=== PATIENT | female | born 1995 | race Caucasian/White ===

== ENCOUNTER 2018-04-18 11:18 | Inpatient (IN) | payer BC, MEDICAID ==
[~2018-04-18] VITALS: Ht 163.1 cm; Wt 92.1 kg
[~2018-04-18 11:18] MED LIST: CEPH500C24 PO; HYDR-4309 PO; PROM-110 PO
[2018-04-18 11:36] VITALS: BP 136/72; Ht 163.1 cm; Wt 92.1 kg
[2018-04-18] MEDS ORDERED: FAMOTIDINE(*) 20MG/50ML PREMIX 50 ML IVPB PRN (12:09)
[2018-04-18] MEDS ORDERED: OXYTOCIN 30 UNIT/D5LR 500 ML 500 ML IV PRN (12:09)
[2018-04-18] MEDS ORDERED: fentaNYL CITR 100 MCG/2 ML AMP IVP PRN (12:10)
[2018-04-18] MEDS ORDERED: LIDOCAINE 1% LOCAL 300 MG/30ML INJ PRN (12:10)
[2018-04-18] MEDS ORDERED: FLUSH 10 ML SYR IVP PRN (12:10)
[2018-04-18] MEDS ORDERED: METOCLOPRAMIDE 10 MG/2 ML SDV IVP PRN (12:10)
[2018-04-18] MEDS ORDERED: LIDOCAINE/SOD BICARB 8.4% SYR SC PRN (12:10)
[2018-04-18] MEDS ORDERED: ONDANSETRON 4 MG/2 ML VIAL IVP PRN (12:15)
[2018-04-18 12:32] LABS: PLATELET COUNT, AUTOMATED 246 K/uL (150-450)
[2018-04-18] MEDS: LR(*) 1000 ML BAG 1,000 ML IV SCH ×2 (12:33→14:00)
--- NOTE | 2018-04-18 12:34 | History & Physical ---
History of Present Illness EDC per LMP: May 01, 2018 Estimated Gestational Age: 38.1 Chief Complaint Loss of fluid and contractions History of Present Illness 22-year-old at 38w1d presents with uterine contractions starting at 10:15 AM. She also reports loss of fluid for the past 3 days. This discharge appears to be clear. She denies any vaginal bleeding or preeclampsia symptoms. She reports good movement. care by [facility]. Her is complicated by a history of SVT with 2 cardiac ablations. History Patient's Blood Type: A Positive Rubella Status: Immune Group B Strep Screen: Negative Obstetrical History: G1: 6wk 2016 G2: Current Past Medical History: Hx SVT with 2 cardiac ablations at 15yo Allergies: Coded Allergies: No Known Drug Allergies (Unverified , 11/24/16) Social History: No T/E/D. Med Rec Home Meds Active Scripts Cephalexin Monohydrate (CEPHALEXIN) 500 Mg Cap, 500 MG PO Q6H, #20 CAP 0 Refills Prov:DEN INGRAM MD 11/24/16 Hydrocodone Bit/Acetaminophen (NORCO 5-325 TABLET) 1 Each Tablet, 1 EACH PO Q4H Y for PAIN, #12 TAB Prov:JOSE HARRELL DO 06/05/16 Review of Systems Constitutional: No Fever Neurological: No Syncope Eyes: No Vision Change Cardiovascular: No Chest Pain Respiratory: No Shortness of Breath Gastrointestinal: No Nausea, No Vomiting, No Diarrhea Genitourinary: No Dysuria Psychiatric: No Depression, No Anxiety Exam General Exam Vital Signs Vital Signs Date Time Temp Pulse Resp B/P (MAP) Pulse Ox O2 Delivery O2 Flow Rate FiO2 04/18/18 11:36 99.1 82 17 136/72 (93) 94 Room Air General Apperance: Alert/Awake/No Acute Distress Neuro: No Gross deficits Eyes: Normal Extraocular Movement & Vison Cardiovascular: Regular Rate and Rhythm Respiratory: No Respiratory Distress, Clear to Auscultation Abdomen: Gravid - Non-Tender : Normal Musculoskeletal: No Weakness/Pain Extremities: No Cyanosis,Clubbing or Edema Integumentary: Skin Intact without Lesions or Rash Psychological: Alert & Oriented X3, Appropriate Mood & Affect Cervical Dialation: 4 (per RN) Cervical Effacement (%): 100 Cervical Consistency: Soft Cervical Position: Mid Station: -1 Presentation: Vertex Uterine Contractions(Q min): 3 Uterine Contraction Strength: Mild, Strong UC Resting Tone: Soft Fetus Feeling Movement?: Yes FHT Category: I Medical Decision Making Pre-Admit Course Medical Record Review: Yes VTE Prophylasis: Adult Deep Vein Thrombosis/Pulmonary: No Pharmacological Contraindicati: Pt at Low Risk for VTE Mechanical Contraindications: Pt at Low Risk for VTE Assessment and Plan Problems: (1) 38 weeks gestation of Assessment & Plan: 22yo at 38w4d presents with UCx. She appears to be in labor. Amnisure negative. Monitor for cervical change. Epidural for pain control. (2) History of PSVT (paroxysmal supraventricular tachycardia) PRESTON SAVAGE MD April 18, 2018 11:50
[2018-04-18] MEDS ORDERED: BUPIVACAINE 0.5% INJ 30ML VIAL EPI PRN (12:55)
[2018-04-18] MEDS ORDERED: FENTANYL/ROPIVACAINE 100 ML BAG EPI PRN (12:55)
[2018-04-18] MEDS ORDERED: fentaNYL CITR 100 MCG/2 ML AMP IT PRN (12:55)
[2018-04-18] MEDS ORDERED: LIDO/EPI 2% MPF 1:200,000 20ML EPI PRN (12:55)
[2018-04-18] MEDS ORDERED: ePHEDrine 25 MG/5 ML DISP.SYR IVP PRN (12:55)
[2018-04-18] MEDS ORDERED: LIDOCAINE/PF 2% 200MG/10ML AMP 200 MG/10 ML AMPUL EPI PRN (12:55)
[2018-04-18] MEDS ORDERED: BUPIVACAINE 0.25% MPF INJ EPI PRN (12:55)
[2018-04-18] MEDS ORDERED: EPIDURAL KEYS XX PRN (12:55)
--- NOTE | 2018-04-18 13:05 | Anesthesia OB Pre-Anes Eval ---
History of Present Illness EDC: May 01, 2018 : 1 Para: 0 Vital Signs: Result Diagram: 04/18/18 1223 Height (Inches): 64.20 Weight (Pounds): 203 BMI Calculated: 34.62 Past Medical History Home Meds Active Scripts Cephalexin Monohydrate (CEPHALEXIN) 500 Mg Cap, 500 MG PO Q6H, #20 CAP 0 Refills Prov:DEN INGRAM MD 11/24/16 Hydrocodone Bit/Acetaminophen (NORCO 5-325 TABLET) 1 Each Tablet, 1 EACH PO Q4H Y for PAIN, #12 TAB Prov:JOSE HARRELL DO 06/05/16 Allergies: Coded Allergies: No Known Drug Allergies (Unverified , 11/24/16) LILIBETH JURADO CRNA April 18, 2018 13:04
[2018-04-18] MEDS ORDERED: BUPIV IT ONE (14:30)
[2018-04-18] MEDS ORDERED: DEXTR IT ONE (14:30)
--- NOTE | 2018-04-18 16:02 | Anesthesia OB Pre-Anes Eval ---
History of Present Illness Anesthesia Start Date: April 18, 2018 Anesthesia Start Time: 13:05 OB Anesthesia Diagnosis: spontaneous labor Complications: None known EDC: May 01, 2018 : 1 Para: 0 Vital Signs: Vital Signs Date Time Temp Pulse Resp B/P (MAP) Pulse Ox O2 Delivery O2 Flow Rate FiO2 04/18/18 11:36 99.1 82 17 136/72 (93) 94 Room Air Pain Ratin Heart Tones: WNL Result Diagram: 04/18/18 1223 Height (Inches): 64.20 Weight (Pounds): 203 BMI Calculated: 34.62 Past Medical History Medical History: other (HS of SVT) Surgical History: other (ablation of heart) Previous Anesthesia: other Attended Childbirth Classes?: No Hx Anesthesia Reactions: No Hx Family Anesthesia Reaction: No Current Medications: pain medication (Fentenyl IV) Home Meds Active Scripts Cephalexin Monohydrate (CEPHALEXIN) 500 Mg Cap, 500 MG PO Q6H, #20 CAP 0 Refills Prov:DEN INGRAM MD 11/24/16 Hydrocodone Bit/Acetaminophen (NORCO 5-325 TABLET) 1 Each Tablet, 1 EACH PO Q4H Y for PAIN, #12 TAB Prov:JOSE HARRELL DO 06/05/16 Allergies: Coded Allergies: No Known Drug Allergies (Unverified , 11/24/16) Anesthesia OB ROS Neurological: No migraines/headaches, No seizures, No neuropathy ENT: Denies Tooth caps, Denies Loose teeth, Denies Chipped teeth, Denies Dentures, Denies Bridges, Denies Retainers, Denies Veneers, Denies Implants, Denies Tongue ring Pulmonary: No asthma, No smoker (pks/day/yrs), other Airway Class: ll Cardiovascular ROS: No edema, No arrhythmia GI ROS: clear liquids Last Solids Date: April 18, 2018 Last Solids Time: 10:00 ROS: No Herpes, No STD(s), No Liver Disease, No Renal Disease Endocrine ROS: No diabetes, No gestational diabetes, No thyroid disorder Musculoskeletal ROS: No low back pain, No low back injury, No scoliosis ASA Classification: 2 Assessment and Plan Anesthesia Plan: CSE Assessment Past Medical, Surgical, Family and Obstetric Histories reviewed. Please see ACOG chart. Epidural anesthesia risks, complications and benefits explained to patient's satisfaction for labor and vaginal delivery and/or section. General anesthesia risks and benefits explained to patient's satisfaction. Questions invited, none asked. LILIBETH JURADO CRNA April 18, 2018 16:02
--- NOTE | 2018-04-18 16:31 | Procedure Note ---
Anesthetic Placement Note Anesthesia Plan: CSE Permit for Anesthesia Signed: Yes Anesthesia Technique: Patient Sitting Anesthesia Prep: Chlorhexidine Interspace: L 3-4 Local Anesthetic: 1% Lidocaine, 25 Gauge Needle Anesthesia Needle: 17g Danita/Daraff Anesthesia Attempts: 1 Loss of Resistance: Air Depth of JOSE (cm): 6 Epidural Needle Placement: CSF, Blood, Parasthesia Intrathecal Needle: 27 Gauge Pencan Cerebral Spinal Fluid: Yes, Clear Catheter Insertion (cm): 8 Catheter Type: Bright - Spring Wound Epidural Dressing: Tegaderm, Tape, Adhesive [place] Anesthesia Tray: Lot Number ([id number]), Expiration Date (2018-08 & 2019-06-26), Reference Number ([id number]) Comment: Pt. states her pain score is "8" after IV Fentenyl. Anesthesia Medications: Intrathecal Dose: mcg Fentanyl (15), mg Marcaine MPF (1.75), Time (1325) Complications: Comment: Small amount of blood noted in epidural needle after repositioning to obtain epidural space. Good JOSE noted. Slow return of CSF noted after intrathecal needle removed and threading catheter. Epidural needle removed after threading epidural catheter. Observed CSF for 10-15 sec., then removed catheter. Pt. changed to left lateral and allowed to rest. After 15 minutes, pt. now comfortable and not noticing contractions at all. Slowly assisted to return to supine position. BP stable and FHT remain good. 2nd attempt made to place epidural catheter. Sterile technique followed. Good JOSE noted, no CSF from epidural needle, but again clear CSF with threading catheter. Epidural catheter left in place and slowly dosed as intrathecal catheter. Able to aspirate clear fluid after catheter has been closed for 10 minutes. 1415: dosed with 0.3ml of spinal Marcaine with Fentenyl 25 mcgs. 1445: dosed with another 0.6 of spinal Marcaine with Fentenyl 50 mcgs. Pt. not showing any indication of spinal effects, able to move both legs very well. 1505: dosed with 5 ml of 0.25% Marcaine pl. 1515: redosed with another [address] and now showing improvement in comfort. LILIBETH JURADO CRNA April 18, 2018 16:31
--- NOTE | 2018-04-18 16:51 | Labor Progress Note ---
Labor Subjective Progress Notes Subjective Doing well. Comfortable with epidural. Labor Objective Vital Signs Vital Signs Date Time Temp Pulse Resp B/P (MAP) Pulse Ox O2 Delivery O2 Flow Rate FiO2 04/18/18 11:36 99.1 82 17 136/72 (93) 94 Room Air Cervical Dialation: 9 Cervical Effacement (%): 100 Cervical Consistency: Soft Cervical Position: Mid Station: +2 Uterine Contractions(Q min): 3 Uterine Contraction Strength: Strong Fetus FHT Category: I General Exam General Appearance: Alert/Awake/No Acute Distress Abdomen: Gravid - Non-Tender : Normal Musculoskeletal: No Weakness/Pain Extremities: No Cyanosis,Clubbing or Edema Integumentary: Skin Intact without Lesions or Rash Psychological: Alert & Oriented X3, Appropriate Mood & Affect Other Result Diagram: 04/18/18 1223 Assessment and Plan Problems: (1) 38 weeks gestation of Assessment & Plan: Pt now anterior lip. Will labor down for another 45 minutes and then push unless indicated before. Anticipate . (2) History of PSVT (paroxysmal supraventricular tachycardia) PRESTON SAVAGE MD April 18, 2018 16:51
--- NOTE | 2018-04-18 16:53 | Anesthesia Progress Note ---
Progress/Maintenance Anesthesia Note Date: April 18, 2018 Anesthesia Note Time: 16:30 Pain Intensity: 0 Motor Level: Bending Knees-Bilateral Dilatation: 6 Position: Right, Tilt Assessment and Plan Assessment Pt. remains very comfortable. No further medications given per epidural. LILIBETH JURADO CRNA April 18, 2018 16:53
--- NOTE | 2018-04-18 18:08 | Anesthesia Progress Note ---
Progress/Maintenance Anesthesia Note Date: April 18, 2018 Anesthesia Note Time: 16:55 Pain Intensity: 1 Sensory Level: T-12 Motor Level: Bending Knees-Bilateral Dilatation: 10 Position: Semi-Fowlers Drug Bolus: 0.25% Marcaine (4 ml) Assessment and Plan Assessment Bolus of Marcaine 0.25% plain given. Pt. pushing well. LILIBETH JURADO CRNA April 18, 2018 18:07
[2018-04-18] MEDS ORDERED: BENZOCAINE 20% 60 ML BTL TP PRN (18:30)
[2018-04-18] MEDS ORDERED: INFLUENZA VIRUS VAC 0.5 ML SYR IM ONLY ONE (18:30)
[2018-04-18] MEDS ORDERED: HYDROCORTISONE 2.5% CR 30GM TB PR PRN (18:30)
[2018-04-18] MEDS ORDERED: MAGNESIUM HYDROXIDE* 30ML UDCP PO PRN (18:30)
[2018-04-18] MEDS ORDERED: GLYCERIN/WITCH HAZEL LEAF 1 PK TOP PRN (18:30)
[2018-04-18] MEDS ORDERED: LANOLIN OINT 7 GM TUBE TP PRN (18:30)
[2018-04-18] MEDS ORDERED: ACETAMINOPHEN 325 MG TAB PO PRN (18:30)
--- NOTE | 2018-04-18 18:30 | OB Delivery Note ---
Delivery Note Vaginal Delivery Type: Spont. Vaginal Delivery Delivery Date: April 18, 2018 Delivery Time: 18:18 Estimated Gestational Age(wks): 38.4 Length of Labor Stage I (hrs): 7 Length of Labor Stage II (hrs): 1 Labor Stage III (minutes): 3 Delivery Anesthesia: Epidural Infant Sex: Male Quincy Apgars: 1 Minute (8), 5 Minute (9) Repair Needed: 2nd Degree Estimated Blood Loss: 200 Delivery Complications: Nuchal Cord PRESTON SAVAGE MD April 18, 2018 18:30
--- NOTE | 2018-04-18 18:35 | Anesthesia Progress Note ---
Progress/Maintenance Anesthesia Note Date: April 18, 2018 Anesthesia Note Time: 18:30 Pain Intensity: 0 Motor Level: Bending Knees-Bilateral Position: Semi-Fowlers Assessment and Plan Assessment No further medication given. Empty sterile syringe (1ml) attached to epidural catheter and will keep it in place til 04/19/18. Patient instructed the first ambulation is to be with help of nursing staff. Instructed to preform deep knee bends at bedside before walking. RN instructed to not remove epidural catheter. Anesthesia Stop Day: April 18, 2018 Anesthesia Stop Time: 18:30 LILIBETH JURADO CRNA April 18, 2018 18:35
[2018-04-18] MEDS: IBUPROFEN 800 MG TAB PO SCH (19:45)
--- NOTE | 2018-04-18 20:03 | DELIVERY NOTE ---
DELIVERY DATE: April 18, 2018 SURGEON: Rowena Boss MD ANESTHESIA: Epidural. DIRECTOR OF ENTERPRISE STRATEGY: Brooke Arzate CRNA PREOPERATIVE DIAGNOSIS Intrauterine at 38 weeks one day, presenting in spontaneous active labor. POSTOPERATIVE DIAGNOSES 1. Intrauterine at 38 weeks one day, presenting in spontaneous active labor. 2. Delivery of a viable male at 1818 hours weighing 3178g with Apgars of 8 at one minute and 9 at five minutes. PROCEDURES PERFORMED 1. Spontaneous vaginal delivery. 2. Repair of second-degree midline laceration. INDICATIONS FOR PROCEDURE This patient is a 22-year-old 2, para zero, who presents at 38 weeks one day with spontaneous active labor. At the time of presentation, she was 3, 100, and -2. She was able to progress on her own and received an epidural for anesthesia. She was noted to be complete at 1714 hours after experiencing spontaneous rupture of membranes at 1639 hours. She was then allowed to labor down and then prepared for pushing. DESCRIPTION OF PROCEDURE The patient was noted to be complete and placed in the dorsal lithotomy position and prepped and draped in the usual fashion for a vaginal procedure. She was able to bring the infant's vertex to the perineum with spontaneous pushing. The 's vertex delivered spontaneously in the BECKI positive over an intact perineum. Initially, there was a bit of a turtle sign, and it appeared that there may be a dystocia. However, with a small amount of manipulation of the patient's position into Liana position, the posterior shoulder was able to be delivered easily, followed by the anterior shoulder. A nuchal cord was noted and delivered through. The remainder of the was easily delivered. The infant had spontaneous cry and spontaneous movement of all four extremities. The oropharynx and nasopharynx were bulb suctioned. The was then passed to the mother's abdomen where nursing personnel was in attendance. After 90 seconds, the cord was clamped times two and cut by the father of the baby. Cord blood was then obtained and passed off the table. The placenta subsequently delivered spontaneously intact at 1821 hours and was passed off the table. Examination of the cervix, vaginal wall, and perineum revealed a second-degree midline laceration which was repaired using a 3-0 Vicryl in a running, nonlocking fashion. Once hemostasis was assured, the patient tolerated the procedure well and recovered in Labor and Delivery with her infant. All sponge and needle counts were correct at the end of this procedure. SUSHIL
[2018-04-18 21:06] VITALS: BP 115/66
[2018-04-18] MEDS: DOCUSATE CALCIUM 240 MG CAP PO SCH (21:36)
[2018-04-18 22:24] VITALS: BP 115/57
[2018-04-19 00:12] VITALS: BP 110/54
[2018-04-19] MEDS: IBUPROFEN 800 MG TAB PO SCH ×3 (02:55→19:02)
[2018-04-19 03:13] VITALS: BP 123/70
[2018-04-19] MEDS: APAP/HYDROCODONE 325/5 TAB PO PRN (05:26)
[2018-04-19 08:00] VITALS: BP 115/58
--- NOTE | 2018-04-19 08:05 | OB/GYN Progress Note ---
OB Subjective Progress Notes Subjective Doing well. Pain controlled with oral medications. Tolerating regular diet. Ambulating. Voiding. Normal lochia. No preeclampsia symptoms. Working through issues. OB Objective Physical Exam Vital Signs Date Time Temp Pulse Resp B/P (MAP) Pulse Ox O2 Delivery O2 Flow Rate FiO2 04/19/18 03:13 98.5 71 18 123/70 (87) 04/18/18 22:24 95 Room Air General Appearance: Alert/Awake/No Acute Distress Neurological: No Gross deficits Eyes: Normal Extraocular Movement & Vison Cardiovascular: Normal Rhythm & Peripheral Pulses, Regular Rate and Rhythm Respiratory: No Respiratory Distress, Clear to Auscultation Abdomen: Soft, Non-Tender, Non-Distended, Fundus Firm Musculoskeletal: No Weakness/Pain Extremities: No Cyanosis,Clubbing or Edema Integumentary: Skin Intact without Lesions or Rash Psychological: Alert & Oriented X3, Appropriate Mood & Affect Result Diagram: 04/18/18 1223 Assessment and Plan Problems: (1) care and examination immediately after delivery Assessment & Plan: PPD#1 s/p . Doing well. Work on today. Home tomorrow. (2) History of PSVT (paroxysmal supraventricular tachycardia) PRESTON SAVAGE MD April 19, 2018 08:05
[2018-04-19] MEDS ORDERED: HYDR2TAB4 PO (08:50)
[2018-04-19] MEDS ORDERED: IBUP800T37 PO (08:50)
--- NOTE | 2018-04-19 08:52 | OB/GYN Discharge Summary ---
Discharge Summary Reason for Hosp/Final Diag: (1) care and examination immediately after delivery Hospital Course & Plan: vaginal delivery on PPD#2 . Pain controlled, Tolerating diet and activity. Baby . Normal lochia. Evaluated for spinal headache on day 2 Lates Vital Signs Vital Signs Date Time Temp Pulse Resp B/P (MAP) Pulse Ox O2 Delivery O2 Flow Rate FiO2 04/19/18 03:13 98.5 71 18 123/70 (87) 04/18/18 22:24 95 Room Air Weight (Pounds): 203 Result Diagram: 04/18/18 1223 Condition: Improved Discharge: Home, Self Alf Meds Active Scripts Ibuprofen (IBUPROFEN) 800 Mg Tablet, 1 TAB PO Q8H, #30 TAB 0 Refills Take with food every 8 hours. Prov:RAMILA HERNANDEZ MD 04/19/18 Hydromorphone Hcl (HYDROMORPHONE HCL) 2 Mg Tablet, 2-4 MG PO Q4H for PAIN, #20 TAB 0 Refills Prov:RAMILA HERNANDEZ MD 04/19/18 Cephalexin Monohydrate (CEPHALEXIN) 500 Mg Cap, 500 MG PO Q6H, #20 CAP 0 Refills Prov:DEN INGRAM MD 11/24/16 Hydrocodone Bit/Acetaminophen (NORCO 5-325 TABLET) 1 Each Tablet, 1 EACH PO Q4H Y for PAIN, #12 TAB Prov:JOSE HARRELL DO 06/05/16 [phone] Follow up in: 6 wks PP or PO Discharge Diet: As Tolerates Discharge Activity: Pelvic Rest Copies to: RAMILA HERNANDEZ MD, JOHN MD April 19, 2018 08:51
[2018-04-19] MEDS: DOCUSATE CALCIUM 240 MG CAP PO SCH ×2 (09:57→21:35)
--- NOTE | 2018-04-19 12:06 | Anesthesia Post Eval Note ---
Anesthesia Post Eval Note Vital Signs Date Time Temp Pulse Resp B/P (MAP) Pulse Ox O2 Delivery O2 Flow Rate FiO2 04/19/18 08:00 98.8 78 18 115/58 (77) 04/18/18 22:24 95 Room Air Pt able to participate in Eval: Yes Cardiovascular Status: Satisfactory Respiratory Status: Satisfactory Pain Managment: Satisfactory PO Nausea/Vomiting: Satisfactory Temperature Management: Satisfactory Mental Status: Satisfactory, Alert, Oriented X3 Post-Op Hydration Status: Satisfactory, Tolerating PO Well, Voiding w/o Difficulty Anesthesia Type: CSE Anesthesia Tolerance: Tolerated procedure well without apparent anesthetic complications. LP site clear, no redness or edema. States she has a "slight headache". Denies any residual paresthesia. Vital Signs Stable, Patient comfortable and condition stable. Instructed pt. to avoid any straining or heaving lifting for 7-10 days and to notify her physician if she has a headache with ambulation, relieved with rest. Description of PDPHA described to pt. LILIBETH JURADO CRNA April 19, 2018 12:06
[2018-04-19 13:15] VITALS: BP 119/59
[2018-04-19 20:30] VITALS: BP 109/60
[2018-04-20] MEDS: APAP/HYDROCODONE 325/5 TAB PO PRN ×3 (01:45→16:44)
[2018-04-20] MEDS: IBUPROFEN 800 MG TAB PO SCH (03:35)
[2018-04-20 04:00] VITALS: BP 105/57
[2018-04-20] MEDS ORDERED: MEASLES,MUMP,RUBELLA VAC 0.5ML SUBQ ONE (09:00)
[2018-04-20] MEDS ORDERED: DIPHTH/TETANUS/ACEL. PERTUSSIS IM ONLY ONE (09:00)
--- NOTE | 2018-04-20 09:24 | OB/GYN Progress Note ---
OB Subjective Progress Notes Subjective Pain controlled, Tolerating diet and activity. Baby . Normal lochia. GI: NEG Nausea, NEG Vomiting Pain: Mild Neurological: Headache OB Objective Physical Exam Vital Signs Date Time Temp Pulse Resp B/P (MAP) Pulse Ox O2 Delivery O2 Flow Rate FiO2 04/20/18 04:00 98.0 63 18 105/57 (73) Room Air 04/19/18 20:30 93 General Appearance: Alert/Awake/No Acute Distress Neurological: No Gross deficits Eyes: Normal Extraocular Movement & Vison Cardiovascular: Normal Rhythm & Peripheral Pulses, Regular Rate and Rhythm Respiratory: No Respiratory Distress, Clear to Auscultation Abdomen: Soft, Non-Tender, Non-Distended, Fundus Firm Musculoskeletal: No Weakness/Pain Extremities: No Cyanosis,Clubbing or Edema, No Edema Integumentary: Skin Intact without Lesions or Rash Psychological: Alert & Oriented X3, Appropriate Mood & Affect Result Diagram: 04/18/18 1223 Assessment and Plan Problems: (1) care and examination immediately after delivery Assessment & Plan: Pain controlled, Tolerating diet and activity. Baby . Normal lochia. Has headache will have [facility] evaluate RAMILA HERNANDEZ MD April 20, 2018 09:24
[2018-04-20] MEDS: DOCUSATE CALCIUM 240 MG CAP PO SCH (09:27)
[2018-04-20 09:40] VITALS: BP 129/64
[2018-04-20 13:30] VITALS: BP 112/68
--- NOTE | 2018-04-20 14:56 | OB/GYN Progress Note ---
OB Subjective Progress Notes Subjective Pt is feeling much better as far as spinal headache. She was just up and walking without headache. She is much more alert. She would like to go home. OB Objective Physical Exam Vital Signs Date Time Temp Pulse Resp B/P (MAP) Pulse Ox O2 Delivery O2 Flow Rate FiO2 04/20/18 04:00 98.0 63 18 105/57 (73) Room Air 04/19/18 20:30 93 General Appearance: Alert/Awake/No Acute Distress Neurological: No Gross deficits Eyes: Normal Extraocular Movement & Vison Respiratory: No Respiratory Distress Abdomen: Soft, Non-Tender, Non-Distended, Fundus Firm Extremities: No Cyanosis,Clubbing or Edema, No Edema Integumentary: Skin Intact without Lesions or Rash Psychological: Alert & Oriented X3, Appropriate Mood & Affect Result Diagram: 04/18/18 1223 Assessment and Plan Problems: (1) care and examination immediately after delivery Assessment & Plan: PPD#2 s/p . Spinal headache is improving with conservative management and she is requesting discharge to home. Discussed PP, spinal headache and precautions. F/U next week for headache and in 6wks for PP visit. (2) History of PSVT (paroxysmal supraventricular tachycardia) PRESTON SAVAGE MD April 20, 2018 14:56
--- NOTE | 2018-04-20 15:54 | Anesthesia Post Eval Note ---
Anesthesia Post Eval Note Pt able to participate in Eval: Yes Cardiovascular Status: Satisfactory Respiratory Status: Satisfactory PO Nausea/Vomiting: Satisfactory Temperature Management: Satisfactory Mental Status: Satisfactory, Alert, Oriented X3 Post-Op Hydration Status: Tolerating PO Well, Voiding w/o Difficulty Anesthesia Tolerance: Have observed pt. 3 times today. She states her headache has greatly improved from last night. Encouraged to increase oral fluids and continue to take po pain medication. Blood patch was thoroughly explained, again. She states she is feeling better and would rather "wait and see" what happens after she is discharged. Instructed to not lift or strain, putting abdominal pressure or strain to back. Abdominal binder applied to pt. this am. Pt. agrees to notify if her headache increases. LILIBETH JURADO CRNA April 20, 2018 15:54
== END 2018-04-20 17:45 | disposition home or self-care (01) | DRG 775 ==
LOC: OB 11:18
PROVIDERS: ADMIT Obstetrics & Gynecology; ATTEND Obstetrics & Gynecology
PROC: 10E0XZZ Delivery of Products of Conception, External Approach (ICD-10-PCS; principal; 2018-04-18)
PROC: 0KQM0ZZ Repair Perineum Muscle, Open Approach (ICD-10-PCS; 2018-04-18)
DX: O69.81X0 Labor and delivery complicated by cord around neck, without compression, not applicable or unspecified (principal); O70.1 Second degree perineal laceration during delivery; G97.1 Other reaction to spinal and lumbar puncture; Y84.4 Aspiration of fluid as the cause of abnormal reaction of the patient, or of later complication, without mention of misadventure at the time of the procedure; Y92.230 Patient room in hospital as the place of occurrence of the external cause; Z37.0 Single live birth; Z3A.38 38 weeks gestation of pregnancy
CPT/HCPCS: 84112; 85025; 86850; 86900; 86901; J3010; J7120; S0020